=== PATIENT | female | born 2000 | race Two or more races ===

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

== ENCOUNTER 2024-04-07 15:47 | Emergency (ER) | payer SELFPAY ==
[~2024-04-07] VITALS: Ht 162.6 cm; Wt 97.5 kg
[2024-04-07 18:46] VITALS: BP 114/74; PULSE 81; RESP 18; TEMP 99.1; O2SAT 91
[2024-04-07] MEDS ORDERED: ACET500T58 PO (19:37)
== END 2024-04-07 20:03 | disposition home or self-care (01) ==
LOC: ER 15:47
DX: S62.615A Displaced fracture of proximal phalanx of left ring finger, initial encounter for closed fracture (principal); S39.012A Strain of muscle, fascia and tendon of lower back, initial encounter; Z79.1 Long term (current) use of non-steroidal anti-inflammatories (NSAID); Z88.6 Allergy status to analgesic agent; Z98.890 Other specified postprocedural states; V49.49XA Driver injured in collision with other motor vehicles in traffic accident, initial encounter; Y93.89 Activity, other specified; Y92.410 Unspecified street and highway as the place of occurrence of the external cause; Y99.8 Other external cause status
CPT/HCPCS: 29130; 72100; 73130